=== PATIENT | female | born 1960 | race Caucasian/White ===

== ENCOUNTER → 2017-10-27 | Outpatient (CLI) | payer BC | LOC: COL.RAD 14:30 | DX: Z01.818 Encounter for other preprocedural examination (principal); M17.11 Unilateral primary osteoarthritis, right knee ==

== ENCOUNTER 2018-04-01 05:48 | Day surgery (SDC) | payer BC ==
[~2018-04-01] VITALS: Ht 167.6 cm; Wt 84.3 kg
[2018-04-01] VITALS (11 sets, daily range): BP systolic 92–110; BP diastolic 47–64; PULSE 65–80; TEMP 97.5–98
[2018-04-01 06:53] LABS: HEMOGLOBIN 11.8 g/dl (12.5-16.0); MEAN CELL VOLUME 92 fl (80.0-100.0); MEAN CORPUSCULAR HEMOGLOBIN 31 pg (27.0-31.0); MEAN CORPUSCULAR HGB CONC 33 g/dl (33.0-37.0); MEAN PLATELET VOLUME 10.6 fl (7.4-10.4); PLATELET COUNT 263 K/mm3 (130-400); RED BLOOD COUNT 3.86 M/mm3 (4.10-5.30)
[2018-04-01 06:54] LABS: HEMATOCRIT 35.3 % (37.0-47.0)
[2018-04-01 07:06] LABS: CALCIUM 9.4 mg/dL (8.4-10.2); CREATININE, serum 0.72 mg/dL (0.52-1.25); POTASSIUM 4.1 mmol/L (3.4-5.0)
[2018-04-01] MEDS ORDERED: ASPIRIN 81M81 MG/TA2 PO (07:42)
[2018-04-01] MEDS ORDERED: IMDUR 30MG30 MG/TAB PO (07:43)
[2018-04-01] MEDS ORDERED: TYLENOL 500MG500 MG PO (07:44)
[2018-04-01] MEDS ORDERED: LIPITOR 40MG TA40 MG PO (07:45)
[2018-04-01] MEDS ORDERED: PLAVIX 75MG TAB75 MG PO (07:47)
[2018-04-01] MEDS ORDERED: CALCIUM CARB500 MG PO (07:47)
[2018-04-01] MEDS ORDERED: VASOTEC 2.2.5 MG/TAB PO (07:48)
[2018-04-01] MEDS ORDERED: EPA FISH OIL1 SGL PO (07:49)
[2018-04-01] MEDS ORDERED: TOPROL XL 25MG25 MG PO (07:50)
[2018-04-01] MEDS ORDERED: MULTI VITAMINS1 TAB PO ×2 (07:51→07:57)
[2018-04-01] MEDS ORDERED: NITROSTAT0.4 MG/TAB SL (07:53)
== END 2018-04-01 14:14 | disposition home or self-care (01) ==
LOC: COL.CAR 05:48
PROVIDERS: Internal Medicine Cardiovascular Disease
DX: I42.0 Dilated cardiomyopathy (principal); I25.2 Old myocardial infarction; M16.9 Osteoarthritis of hip, unspecified; E78.2 Mixed hyperlipidemia; I44.7 Left bundle-branch block, unspecified; I05.9 Rheumatic mitral valve disease, unspecified; G89.29 Other chronic pain; Z90.710 Acquired absence of both cervix and uterus; Z88.6 Allergy status to analgesic agent; Z88.8 Allergy status to other drugs, medicaments and biological substances; Z79.82 Long term (current) use of aspirin; Z79.02 Long term (current) use of antithrombotics/antiplatelets; Z82.49 Family history of ischemic heart disease and other diseases of the circulatory system; Z82.3 Family history of stroke
CPT/HCPCS: C1760; C1894; J2250; J3010; Q9967

== ENCOUNTER 2018-07-15 07:57 | Day surgery (SDC) | payer BC ==
[2018-07-15] VITALS (10 sets, daily range): BP systolic 80–108; BP diastolic 40–65; PULSE 59–69; TEMP 97.7
[~2018-07-15] VITALS: Ht 167.8 cm; Wt 84.9 kg
[~2018-07-15 07:57] MED LIST: ASPIRIN 81M81 MG/TA2 PO; CALCIUM CARB500 MG PO; EPA FISH OIL1 SGL PO; IMDUR 30MG30 MG/TAB PO; LIPITOR 40MG TA40 MG PO; MULTI VITAMINS1 TAB PO; NITROSTAT0.4 MG/TAB SL; PLAVIX 75MG TAB75 MG PO; TOPROL XL 25MG25 MG PO; TYLENOL 500MG500 MG PO; VASOTEC 2.2.5 MG/TAB PO
[2018-07-15] MEDS ORDERED: OMEGA-31 SGL PO (08:49)
[2018-07-15] MEDS ORDERED: [UNRECOGNIZED DRUG - OTHER] PO (08:51)
[2018-07-15] MEDS ORDERED: SUPER CALCIUM W1 TA2 PO (08:52)
[2018-07-15] MEDS ORDERED: TYLENOL 8 HR PO (08:56)
[2018-07-15 08:58] LABS: HEMOGLOBIN 12.3 g/dl (12.5-16.0); MEAN CELL VOLUME 94 fl (80.0-100.0); MEAN CORPUSCULAR HEMOGLOBIN 31 pg (27.0-31.0); MEAN CORPUSCULAR HGB CONC 33 g/dl (33.0-37.0); MEAN PLATELET VOLUME 10.3 fl (7.4-10.4); PLATELET COUNT 290 K/mm3 (130-400); RED BLOOD COUNT 3.92 M/mm3 (4.10-5.30); REDCELL DISTRIBUTION WIDTH-CV 12.8 % (11.5-14.5)
[2018-07-15 08:59] LABS: HEMATOCRIT 36.9 % (37.0-47.0); INR 0.9 (0.8-3.0); PROTHROMBIN TIME 10.5 SECONDS (9.7-12.8)
[2018-07-15 09:04] LABS: CALCIUM 9.1 mg/dL (8.4-10.2); CREATININE, serum 0.67 mg/dL (0.52-1.25)
[2018-07-15] MEDS ORDERED: IMDUR 60MG60 MG/TAB PO (09:38)
[2018-07-16 00:52] VITALS: BP 95/55; PULSE 78; TEMP 98
[2018-07-16 04:48] VITALS: BP 113/58; PULSE 66; TEMP 98.5
[2018-07-16] MEDS ORDERED: CEPHALEXIN500 M1 PO (09:20)
[2018-07-16 09:49] VITALS: BP 97/68
== END 2018-07-16 11:09 | disposition home or self-care (01) ==
LOC: COL.CAR 07:57 → MEDICAL 14:11 → COL.CAR 07-16 11:09
PROVIDERS: Internal Medicine Cardiovascular Disease
DX: I42.8 Other cardiomyopathies (principal); I50.22 Chronic systolic (congestive) heart failure; I08.1 Rheumatic disorders of both mitral and tricuspid valves; I44.7 Left bundle-branch block, unspecified; Z79.82 Long term (current) use of aspirin; Z79.899 Other long term (current) drug therapy
CPT/HCPCS: OP; C1769; C1882; C1895; C1898; C1900; J0690; J2250; J3010; J7030; Q9967

== ENCOUNTER 2018-09-01 08:03 | Inpatient (IN) | payer BC ==
[~2018-09-01] VITALS: Ht 167.6 cm; Wt 88.2 kg
[~2018-09-01 08:03] MED LIST changes: +CEPHALEXIN500 M1 PO; +IMDUR 60MG60 MG/TAB PO; +OMEGA-31 SGL PO; +SUPER CALCIUM W1 TA2 PO; +TYLENOL 8 HR PO; +[UNRECOGNIZED DRUG - OTHER] PO
[2018-09-01 09:44] VITALS: BP 109/48; PULSE 79; TEMP 97.9
[2018-09-01 09:47] LABS: PROTHROMBIN TIME 10.9 SECONDS (9.7-12.8)
[2018-09-01 09:48] LABS: BASO # 0.1 (0.0-0.2); BASO % 0.8 % (0.0-2.0); EOS # 0.2 (0.0-0.7); EOS % 2.9 % (0-4.0); GRAN # 3.6 (1.4-6.5); GRAN % 56.3 % (42.2-75.2); HEMOGLOBIN 11.3 g/dl (12.5-16.0); LYMPH # 1.8 (1.2-3.4); LYMPH % 27.5 % (20.0-51.0); MEAN CELL VOLUME 95 fl (80.0-100.0); MEAN CORPUSCULAR HEMOGLOBIN 31 pg (27.0-31.0); MEAN CORPUSCULAR HGB CONC 33 g/dl (33.0-37.0); MEAN PLATELET VOLUME 10.3 fl (7.4-10.4); MONO # 0.8 (0.1-0.6); MONO % 12.2 % (1.7-9.3); PLATELET COUNT 272 K/mm3 (130-400); REDCELL DISTRIBUTION WIDTH-CV 12.6 % (11.5-14.5)
[2018-09-01 09:49] LABS: HEMATOCRIT 34.3 % (37.0-47.0)
[2018-09-01 10:00] LABS: ALBUMIN 3.9 gm/dL (3.5-5.0); BILIRUBIN,TOTAL 0.3 mg/dL (0.0-1.0); CALCIUM 8.9 mg/dL (8.4-10.2); CREATININE, serum 0.71 mg/dL (0.52-1.25); MAGNESIUM 1.9 mg/dL (1.6-2.3); POTASSIUM 3.9 mmol/L (3.4-5.0); TOTAL PROTEIN 6.7 gm/dL (6.4-8.2)
[2018-09-01 11:25] VITALS: BP 114/63; PULSE 57; TEMP 97.9
[2018-09-01] MEDS ORDERED: TOPROL XL 50MG50 MG PO (11:31)
[2018-09-01 17:10] VITALS: BP 119/67; PULSE 57; TEMP 98.5
[2018-09-01 19:04] VITALS: BP 109/56; PULSE 59; TEMP 97.6
[2018-09-01 23:52] VITALS: BP 109/58; PULSE 60; TEMP 98.2
[2018-09-02 03:22] VITALS: BP 102/44; PULSE 60; TEMP 98.2
[2018-09-02 06:17] LABS: PROTHROMBIN TIME 11.4 SECONDS (9.7-12.8)
[2018-09-02 06:21] LABS: CALCIUM 9.4 mg/dL (8.4-10.2); CREATININE, serum 0.7 mg/dL (0.52-1.25)
[2018-09-02 07:36] VITALS: BP 118/46; PULSE 62; TEMP 97.7
[2018-09-02 12:41] VITALS: BP 108/55; PULSE 84; TEMP 98.7
[2018-09-02 16:16] VITALS: BP 118/47; PULSE 60; TEMP 97.7
[2018-09-02 19:48] VITALS: BP 106/57; PULSE 70; TEMP 97.4
[2018-09-03] VITALS (9 sets, daily range): BP systolic 91–120; BP diastolic 38–62; PULSE 59–89; TEMP 97.6
[2018-09-03 07:19] LABS: CALCIUM 9.6 mg/dL (8.4-10.2); CREATININE, serum 0.74 mg/dL (0.52-1.25); POTASSIUM 4.3 mmol/L (3.4-5.0)
[2018-09-03 07:19] LABS: PROTHROMBIN TIME 11.5 SECONDS (9.7-12.8)
[2018-09-03] MEDS ORDERED: BETAPACE 80MG80 MG PO (09:53)
== END 2018-09-03 15:12 | disposition home or self-care (01) | DRG 309 ==
LOC: MEDICAL 08:03
PROVIDERS: Internal Medicine Cardiovascular Disease
PROC: 4B02XSZ Measurement of Cardiac Pacemaker, External Approach (ICD-10-PCS; principal; 2018-09-03)
DX: I47.1 Supraventricular tachycardia (principal); I42.8 Other cardiomyopathies; I50.22 Chronic systolic (congestive) heart failure; I47.2 Ventricular tachycardia; Z95.810 Presence of automatic (implantable) cardiac defibrillator; I34.9 Nonrheumatic mitral valve disorder, unspecified
CPT/HCPCS: J2250; J3010